=== PATIENT | female | born 1995 | race Caucasian/White ===

== ENCOUNTER 2019-07-14 17:02 | Emergency (ER) | payer SELFPAY ==
--- NOTE | 2019-07-14 19:15 | ER Document Report ---
ED Medical Screen (RME) - General Chief Complaint: Fall Injury Stated Complaint: FALL/ANKLE PAIN Time Seen by Provider: 07/14/19 18:52 Notes: Generally healthy 23-year-old female presents the emergency department with chief complaint of left foot and ankle pain and swelling after falling down the stairs on Friday. Patient states that she has not iced it, elevated it, or taking any analgesics like Tylenol or Motrin. Patient thought that some swelling would be normal but the pain got acutely worse and the swelling increased today prompting her to get seen. She is able to bear some weight on it but cannot flex or extend her ankle at all. She is able to wiggle her toes. She states that her left foot "feels like it fell asleep". No knee or hip pain, she did not strike her head, no LOC. Exam: Sitting in a wheelchair in no acute distress, significant edema of the left ankle and foot, foot does appear dusky, abrasion versus skin breakdown over the medial malleolus I have greeted and performed a rapid initial assessment of this patient. A comprehensive ED assessment and evaluation of the patient, analysis of test results and completion of medical decision making process will be conducted by an additional ED providers. TRAVEL OUTSIDE OF THE [place] IN LAST 30 DAYS: No Past Medical History Past Surgical History: Reports: Hx Tubal Ligation - Immunizations Hx Diphtheria, Pertussis, Tetanus Vaccination: No Physical Exam - Vital signs Vitals: Temp Resp BP Pulse Ox 98.0 F 18 105/79 100 07/14/19 17:13 07/14/19 17:13 07/14/19 17:13 07/14/19 17:13 Course - Vital Signs Vital signs: Temp Pulse Resp BP Pulse Ox 98.0 F 18 105/79 100 07/14/19 17:13 07/14/19 17:13 07/14/19 17:13 07/14/19 17:13
--- NOTE | 2019-07-14 19:37 | RADIOLOGY REPORT (SQ) ---
EXAM DESCRIPTION: ANKLE LEFT COMPLETE COMPLETED DATE/TIME: 07/14/2019 7:16 pm REASON FOR STUDY: twisted left ankle COMPARISON: None. EXAM PARAMETERS: NUMBER OF VIEWS: Three views. TECHNIQUE: AP, lateral and oblique radiographic images acquired of the left ankle. LIMITATIONS: None. FINDINGS: MINERALIZATION: Normal. BONES: Comminuted oblique fracture in the distal fibular metaphysis at the level of the syndesmosis. Small posterior vertical avulsion fracture from the posterior tibial metaphysis measuring 1.7 cm in length and 4 mm thickness. There is also a 12 mm avulsed fragment from the medial malleolus with 4 m m inferior distraction. Ankle mortise is grossly intact but appears mildly widened medially and late rally, both approximately 4 mm width. JOINTS: Small effusion. SOFT TISSUES: Moderate soft tissue swelling. No radiopaque foreign body. OTHER: No other significant finding. IMPRESSION: Comminuted oblique fracture in the distal fibular metaphysis at the level of the syndesm osis. Small posterior vertical avulsion fracture from the posterior tibial metaphysis measuring 1.7 cm in length and 4 mm thickness. There is also a 12 mm avulsed fragment from the medial malleolus wi th 4 mm inferior distraction. Ankle mortise is grossly intact but appears mildly widened medially an d laterally, both approximately 4 mm width. TECHNICAL DOCUMENTATION: JOB ID: [id number] [place]-72 2010 [employer]- All Rights Reserved Reading location - IP/workstation name: [email or web address]
--- NOTE | 2019-07-14 19:39 | RADIOLOGY REPORT (SQ) ---
EXAM DESCRIPTION: FOOT LEFT COMPLETE COMPLETED DATE/TIME: 07/14/2019 7:16 pm REASON FOR STUDY: TWISTED ANKLE THREE DAYS AGO COMPARISON: None. EXAM PARAMETERS: NUMBER OF VIEWS: Three views. TECHNIQUE: AP, lateral and oblique radiographic images acquired of the left foot. LIMITATIONS: None. FINDINGS: MINERALIZATION: Normal. BONES: No acute foot fracture or dislocation. No worrisome bone lesions. JOINTS: No effusion. SOFT TISSUES: Diffuse soft tissue swelling. No radiopaque foreign body. OTHER: Comminuted distal fibular and tibial fractures. IMPRESSION: No fracture identified in the foot. TECHNICAL DOCUMENTATION: JOB ID: [id number] [place]-72 2010 [email or web address]- All Rights Reserved Reading location - IP/workstation name: [email or web address]
[2019-07-14] MEDS ORDERED: OXYCODONE-ACETAMINOPHEN 5-325 MG TABLET PO ONE (20:48)
[2019-07-14] MEDS ORDERED: ONDANSETRON 4 MG TAB.RAPDIS PO ONE (20:48)
--- NOTE | 2019-07-14 20:53 | ER Document Report ---
ED Extremity Problem, Lower - General Chief Complaint: Fall Injury Stated Complaint: FALL/ANKLE PAIN Time Seen by Provider: 07/14/19 18:52 Primary Care Provider: BAILEY ARRIETA MD [ACTIVE STAFF] - Follow up tomorrow Notes: Patient is a 23-year-old female that comes to the emergency department for chief complaint of twisting her ankle on Friday which caused her to fall and she states she landed and bruised her left forearm area. She states she has continued to be active and has been walking on the foot, and the swelling significantly increased and the pain significantly increased as well. She states the wrist started hurting her. She denies any other injuries. She denies any daily medications or diagnosed medical problems, past medical history of tubal ligation. TRAVEL OUTSIDE OF THE [place] IN LAST 30 DAYS: No Past Medical History - General Information source: Patient - Social History Smoking Status: Never Smoker Drug Abuse: None Lives with: Family Family History: CAD, Hyperlipidemia, Hypertension. denies: Arthritis, CVA, DM, Malignancy, Thyroid Disfunction Past Surgical History: Reports: Hx Tubal Ligation - Immunizations Immunizations up to date: Yes Hx Diphtheria, Pertussis, Tetanus Vaccination: Yes Review of Systems - Review of Systems Constitutional: No symptoms reported EENT: No symptoms reported Cardiovascular: No symptoms reported Respiratory: No symptoms reported Gastrointestinal: No symptoms reported Genitourinary: No symptoms reported Female Genitourinary: No symptoms reported Musculoskeletal: See HPI Skin: No symptoms reported Hematologic/Lymphatic: No symptoms reported Neurological/Psychological: No symptoms reported Physical Exam - Vital signs Vitals: Temp Resp BP Pulse Ox 98.0 F 18 105/79 100 07/14/19 17:13 07/14/19 17:13 07/14/19 17:13 07/14/19 17:13 - Notes Notes: GENERAL: Alert, interacts well. No acute distress. HEAD: Normocephalic, atraumatic. EYES: Pupils equal, round, and reactive to light. Extraocular movements intact. ENT: Oral mucosa moist, tongue midline. Oropharynx unremarkable. Airway patent. LUNGS: Clear to auscultation bilaterally, no wheezes, rales, or rhonchi. No respiratory distress. HEART: Regular rate and rhythm. No murmur ABDOMEN: Soft, non-tender. Non-distended. Bowel sounds present in all 4 quadrants. GENITOURINARY: Deferred EXTREMITIES: Swelling and ecchymosis of the left foot especially over the dorsal aspect and lateral aspects. Capillary refill and sensation intact, dorsalis pedis intact, leg, knee, hip exams are normal. Small bruise over the left forearm without any bony tenderness or abnormality otherwise. BACK: no cervical, thoracic, lumbar midline tenderness. No saddle anesthesia, n ormal distal neurovascular exam. Moves all extremities in full range of motion. NEUROLOGICAL: Alert and oriented x3. Normal speech. Cranial nerves II through XII grossly intact. PSYCH: Normal affect, normal mood. SKIN: Warm, dry, normal turgor. No rashes or lesions noted. Course - Re-evaluation Re-evalutation: Patient with disruption of the ankle mortise of the left ankle and bimalleolar fractures. This occurred several days ago and patient has been walking on it, as result she has had a lot of swelling and bruising. Doppler shows normal dorsalis pedis which is hard to feel because of the swelling, no severe pain to the area, capillary refill and sensation intact. Otherwise unremarkable exam, there is no bony tenderness despite having a small bruise on the left forearm. I did discuss with Dr. Elizalde, I discussed at length with the patient. The patient states that she does not want orthopedic referral because she wants to follow-up with an orthopedic surgeon that her family already sees. She does request a disc of her imaging and she does agree to a splint, crutches, close follow-up. I stressed the importance of this because of likely surgical nature of her injury. Discussed return precautions. Patient states appreciation and agreement. Stable at time of discharge. - Vital Signs Vital signs: Temp Pulse Resp BP Pulse Ox 97.4 F 84 16 154/75 H 100 07/14/19 22:42 07/14/19 22:42 07/14/19 22:42 07/14/19 22:42 07/14/19 17:13 Procedures - Immobilization Left ankle Pre-Proc Neuro Vasc Exam: Normal Immobilizer type: Posterior ankle, Sugar tong Post-Proc Neuro Vasc Exam: Normal Alignment checked and good: Yes Discharge - Discharge Clinical Impression: Closed left ankle fracture Qualifiers: Encounter type: initial encounter Qualified Code(s): S82.892A - Other fracture of left lower leg, initial encounter for closed fracture Condition: Stable Disposition: HOME, SELF-CARE Additional Instructions: There are fractures at the ankle (in both of your leg bones that join at the ankle). There is also concerning appearance of the ankle that will likely require surgery. It is extremely important that you follow-up with orthopedics, either with the listed referral or with your preferred orthopedics surgeon, do not walk on your foot anymore, use the crutches, use a splint, call the ortho pedics of choice tomorrow for very close follow-up and management. If you do not follow-up this will probably not heal correctly. Take the pain medication if needed, return for any concerning symptoms including severe worsening swelling or pain. Prescriptions: Oxycodone HCl/Acetaminophen [Percocet 5-325 mg Tablet] 1 - 2 tab PO Q8HP PRN #12 tablet PRN Reason: Referrals: BAILEY ARRIETA MD [ACTIVE STAFF] - Follow up tomorrow
[2019-07-14 22:44] VITALS: BP 154/75
== END 2019-07-14 22:42 | disposition home or self-care (01) ==
LOC: ER 17:02
DX: S82.842A Displaced bimalleolar fracture of left lower leg, initial encounter for closed fracture (principal); S50.12XA Contusion of left forearm, initial encounter; S90.32XA Contusion of left foot, initial encounter; X50.1XXA Overexertion from prolonged static or awkward postures, initial encounter; W19.XXXA Unspecified fall, initial encounter
CPT/HCPCS: 73610; 73630; 29515; S0119; 99283